=== PATIENT | female | born 1985 | race Caucasian/White ===

== ENCOUNTER 2023-02-10 19:47 | Emergency (ER) | payer OTHER, SELFPAY ==
[2023-02-10] VITALS (17 sets, daily range): BP systolic 109–167; BP diastolic 78–115; PULSE 63–124; RESP 14–24; TEMP 36.4; O2SAT 97–100
[2023-02-10] MEDS: FAMOTIDINE 20 MG/2 ML VIAL 40 MG IV PUSH (19:59)
[2023-02-10] MEDS: EPINEPHrine HCL INJ 1 MG/ML AMPUL 0.3 MG IM (20:02)
--- NOTE | 2023-02-10 20:45 | ED.ALLEREA ---
HPI - Allergic Reaction General Chief complaint: Allergic Reaction Stated complaint: allergic reaction Time Seen by Provider: 02/10/23 19:54 History of Present Illness HPI narrative: This is a 37-year-old female, with history of asthma, who presents emergency department with allergic reaction. Patient states she was eating sushi, when she felt the sensation of her throat closing and itching in the throat. The patient took 50mg of Benadryl with some subsequent lightheadedness and came to the emergency department. She complains of some nausea, though denies vomiting or diarrhea. She denies loss of consciousness or rash. Related Data Allergies Allergy/AdvReac Type Severity Reaction Status Date / Time No Known Allergies Allergy Verified 02/10/23 21:14 Review of Systems Review of Systems: CONSTITUTIONAL: Denies fever, chills, or sweats. ENT: Sensation of throat closing, itching throat denies rhinorrhea, congestion, or otalgia. CARDIOVASCULAR: Denies chest pain, palpitations, or edema. RESPIRATORY: Difficulty breathing denies cough GASTROINTESTINAL: Denies abdominal pain, nausea, vomiting, or diarrhea. GENITOURINARY: Denies dysuria or hematuria. SKIN: Denies rash or itching. MUSCULOSKELETAL: Denies back pain, joint pain, or myalgia. NEUROLOGIC: Denies headache, numbness, dizziness, or weakness. PSYCHIATRIC: Denies anxiety or depression. [facility] Past Medical History Medical History (Updated 02/11/23 @ 00:09 by Benton Alvares MD) Asthma Social History Social History (Updated 02/10/23 @ 20:47 by Benton Alvares MD) Smoking status: Never smoker Alcohol intake: never Substance use: never Exam Narrative: GENERAL: Well-developed, well-nourished, and in no acute distress. HEAD: Normocephalic, atraumatic. EYES: PERRLA and EOMI. ENT: Nares clear, no rhinorrhea or epistaxis. Mucous membranes moist. Oropharynx without tonsillar hypertrophy exudate or other lesions. There is no noted swelling of the oropharynx. Slightly hoarse voice. NECK: Supple. No stridor, adenopathy or masses. No carotid bruits or JVD CHEST: Clear to auscultation. No respiratory distress. No wheezes rales or rhonchi HEART: Tachycardic with regular rhythm. No murmur heard. Normal peripheral pulses. ABDOMEN: Soft, nontender, nondistended, normal active bowel sounds. EXTREMITIES: Normal range of motion. No edema. SKIN: Warm, dry, no rash. NEURO: Alert and oriented x3. Moving all 4 limbs purposefully. PSYCH: Normal mood and affect. Course Course Emergency Course: 20:49 - On reevaluation, the patient's heart rate has improved to the 70s in the sinus rhythm. Blood pressure 123/82. On reevaluation, the patient states she feels much improved. We will continue to observe. 00:00 - After 4 hours of observation, the patient states she feels much improved. On reevaluation, lungs are clear there is no noted stridor and her voice has improved. Will discharge with antihistamines, steroids and an epinephrine autoinjector. Discussed return and emergency precautions including signs/symptoms of anaphylaxis and airway compromise. The patient voiced understanding and is comfortable with the plan. All questions answered to her satisfaction. Vital Signs Vital signs: Vital Signs Temperature 97.6 F 02/10/23 19:49 Pulse Rate 124 H 02/10/23 19:49 Respiratory Rate 24 H 02/10/23 19:49 Blood Pressure 167/115 H 02/10/23 19:49 Pulse Oximetry 100 02/10/23 19:49 Oxygen Delivery Room Air 02/10/23 19:49 Temperature 97.6 F 02/10/23 19:49 Pulse Rate 60 02/11/23 00:01 Respiratory Rate 13 02/11/23 00:01 Blood Pressure 118/98 H 02/11/23 00:01 Pulse Oximetry 98 02/11/23 00:01 Oxygen Delivery Room Air 02/10/23 19:49 MDM - Allergic Reaction MDM Narrative Medical decision making narrative: Plan: IM epinephrine, IV steroids, IV antihistamines, observation Differential Diagnosis Differential diagnosis: Likely anaphylax
[2023-02-11 00:01] VITALS: BP 118/98; PULSE 60; RESP 13; O2SAT 98
== END 2023-02-11 00:33 | disposition home or self-care (01) ==
PROVIDERS: Emergency Provider Preventive Medicine Aerospace Medicine; PCP Obstetrics & Gynecology
DX: T78.40XA Allergy, unspecified, initial encounter (principal); R09.89 Other specified symptoms and signs involving the circulatory and respiratory systems; J45.909 Unspecified asthma, uncomplicated
CPT/HCPCS: 96372; 96374; 96375; 99284; J0171; J1100